=== PATIENT | female | born 1965 | race Caucasian/White ===

== ENCOUNTER 2024-01-30 08:41 | Outpatient (REF) | payer OTHER, SELFPAY ==
[2024-01-30 14:46] LABS: Cholesterol 220 mg/dL (<200); HDL Cholesterol 54 mg/dL (>40); LDL Cholesterol Calculated 142 mg/dL (<100); Triglycerides 121 mg/dL (<150)
[2024-01-30 14:50] LABS: Alanine Aminotransferase 55 U/L (0-31); Albumin Level 4.2 g/dL (3.5-5.0); Alkaline Phosphatase 95 U/L (39-117); Amylase 52 U/L (28-100); Anion Gap 12 (12-20); Aspartate Amino Transferase 39 U/L (5-31); Bilirubin Total 0.5 mg/dL (0.0-1.0); Blood Urea Nitrogen 16 mg/dL (9-16); Calcium 9.8 mg/dL (8.4-10.2); Carbon Dioxide 28 mmol/L (22-29); Chloride 103 mmol/L (96-108); Estimated Glomerular Filt Rate > 60; Glucose Random 89 mg/dL (60-115); Lipase 31 U/L (8-78); Potassium 4.1 mmol/L (3.3-5.1); Sodium 139 mmol/L (135-145); Total Protein 7.5 g/dL (6.5-8.0)
[2024-01-30 15:09] LABS: Erythrocyte Sedimentation Rate 16 MM/HR (0-20)
[2024-01-31 08:35] LABS: HIV AB/AG Nonreactive (Nonreactive); HIV Num 1 0.04 S/CO (0.00-0.99); ~HepC Num1 0.08 S/CO (0.00-0.79); ~Hepatitis C Antibody Nonreactive (Nonreactive)
== END 2024-01-30 08:42 | disposition home or self-care (01) ==
LOC: HO.CHCLDS 08:41
PROVIDERS: Visit Provider Family Medicine
DX: Z00.00 Encounter for general adult medical examination without abnormal findings (principal); Z11.4 Encounter for screening for human immunodeficiency virus [HIV]; R14.0 Abdominal distension (gaseous); E78.5 Hyperlipidemia, unspecified
CPT/HCPCS: 36415; 80053; 80061; 82150; 83690; 85652; 86140; 86803; 87389